=== PATIENT | female | born 2000 | race Caucasian/White ===

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

== ENCOUNTER 2022-07-16 19:12 | Emergency (ER) | payer MEDICAID ==
[2022-07-16] MEDS ORDERED: ONDANSETRON ODT 4 MG TABLET TL STA (21:11)
[2022-07-16 22:02] VITALS: BP 133/55
--- NOTE | 2022-07-16 23:02 | ED Physician Documentation ---
History of Present Illness - Stated complaint Stated Complaint: BACK PX, N/V - Chief complaint Chief Complaint: Back Pain - History obtained from History obtained from: Patient - Additonal information Additional information: The patient complains of a tight sensation in her mid back, wrapping around to the front, that started around the time she began to get very nauseated today. The patient states the sense of tightness culminated with her vomiting and now has largely resolved. She states she still has some tightness in that hurts over her ribs. She denies any shortness of breath. No abdominal pain. She is 8 weeks and has had some nausea on and off with vomiting. She states it hurts to take a deep breath in that same area. No fevers or chills. No vaginal bleeding. No other complaints at this time. Patient is otherwise healthy. She states her first OB appointment is coming up in a couple of weeks and she has not yet had an ultrasound. Review of Systems Ten Systems: 10 systems reviewed and negative Constitutional: reports: Reviewed and negative Eyes: reports: Reviewed and negative Ears: reports: Reviewed and negative Nose: reports: Reviewed and negative Throat: reports: Reviewed and negative Cardiac: reports: Reviewed and negative Respiratory: reports: Reviewed and negative GI: reports: Nausea, Vomiting : reports: Reviewed and negative Skin: reports: Reviewed and negative Musculoskeletal: reports: Back pain Neurologic: reports: Reviewed and negative Psychiatric: reports: Reviewed and negative Endocrine: reports: Reviewed and negative Immunocompromised: reports: Reviewed and negative PD PAST MEDICAL HISTORY - Past Medical History Past Medical History: Yes Cardiovascular: None Respiratory: None Neuro: None Endocrine/Autoimmune: None GI: None [employer] 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[employer]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: 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 : None HEENT: None Psych: None Musculoskeletal: None Derm: None - Past Surgical History Past Surgical History: Yes HEENT: Myringotomy (tubes), Tonsil/Adenoidectomy - Present Medications Home Medications: Ambulatory Orders Medication Instructions Recorded Confirmed Ondansetron Odt [Zofran] 4 mg TL Q6H PRN #10 tablet 07/16/22 - Allergies Allergies/Adverse Reactions: Allergies Allergy/AdvReac Type Severity Reaction Status Date / Time pneumococcal 7-valent Allergy Edema Verified 07/16/22 19:32 conjugate to [From Prevnar] - Social History Does the pt smoke?: No Smoking Status: Never smoker Does the pt drink ETOH?: No Does the pt have substance abuse?: No - Immunizations Immunizations are current?: Yes - POLST Patient has POLST: No PD ED PE NORMAL - Vitals Vital signs reviewed: Yes - General General: Alert and oriented X 3, No acute distress, Well developed/nourished - HEENT HEENT: Atraumatic, PERRL, EOMI, Moist mucous membranes - Neck Neck: Supple, no meningeal sign - Cardiac Cardiac: RRR, No murmur - Respiratory Respiratory: No respiratory distress, Clear bilaterally - Abdomen Abdomen: Soft, Non tender, Non distended - Back Back: No spinal TTP, Other (Tenderness to palpation of thoracic paraspinal musculature. Tenderness wraps around lower rib cage, as well.) - Derm Derm: Warm and dry - Extremities Extremities: No deformity - Neuro Neuro: Alert and oriented X 3 - Psych Psych: Normal mood, Normal affect Results - Vitals Vitals: Oxygen O2 Source Room air - Labs Labs: Laboratory Tests 07/16/22 21:21 HCG, Quant 95625.00 PD Medical Decision Making - ED course Complexity details: considered differential, d/w patient ED course: Quantitative hCG was 72,000. I discussed with the patient that her symptoms are most consistent with musculoskeletal cause of back discomfort. She was treated symptomatically in the emergency department. There is no evidence at this point in time of any issue with her . The patient symptoms overall were improved even by the time of her arrival here, and she is stable for discharge home. Departure - Departure Disposition: 01 Home, Self Care Clinical Impression: Back spasm, Vomiting Condition: Stable Instructions: ED Spasm Back No Trauma, ED Preg Morning Sickness Prescriptions: Ondansetron Odt [Zofran] 4 mg TL Q6H PRN #10 tablet PRN Reason: Nausea / Vomiting Comments: Your hormone level looks great. Your back pain is most consistent with a musculoskeletal source, which is not surprising, given that you have been vomiting. You may take Tylenol for this, and also, ice, heat, stretching, and massage are also helpful in loosening your back. Has further issue related nausea, a prescription for nausea medicine has been electronically transmitted to the [facility] pharmacy in [place] for you. You may take this as needed for nausea. Please follow-up with your OB specialist, as planned, in July. Discharge Date/Time: 07/16/22 23:00
== END 2022-07-16 23:00 | disposition home or self-care (01) ==
LOC: ED 19:12
DX: O21.9 Vomiting of pregnancy, unspecified (principal); O99.891 Other specified diseases and conditions complicating pregnancy; Z3A.00 Weeks of gestation of pregnancy not specified; M62.830 Muscle spasm of back
CPT/HCPCS: 36415; 84702; 99282; 99283